=== PATIENT | female | born 1995 | race American Indian/Alaskan Native ===

== ENCOUNTER 2019-03-29 19:11 | Emergency (ER) | payer SELFPAY ==
[2019-03-29] MEDS ORDERED: TORADOL IM ONE (19:35)
--- NOTE | 2019-03-29 19:40 | Emergency Department Report ---
ED Back Pain/Injury HPI - General Chief Complaint: Back Pain/Injury Stated Complaint: BACK PAIN DUE TO FALL Time Seen by Provider: 03/29/19 19:34 Source: patient Limitations: No Limitations - History of Present Illness Initial Comments: pt is a 23 y/o female who presents for low back pain status post fall just 2 steps ; there was no LOC patient was ambulatory after falling on complains of low back pain radiating to her right lateral thigh . There is also decrease in bowel or bladder function patient is ambulatory to baseline per patient. MD Complaint: back pain Onset/Timin -: days(s) Similar Symptoms Previously: Yes Place: home Radiation: right leg Severity: moderate Severity scale (0 -10): 4 Quality: aching Consistency: constant Improves With: none Worsens With: movement, sitting upright, walking Context: fall Associated Symptoms: denies other symptoms. denies: weakness, numbness, difficulty urinating, incontinence, constipation - Related Data Previous Rx's Medication Instructions Recorded Last Taken Type Cyclobenzaprine [Flexeril] 10 mg PO TID PRN #30 tablet 03/29/19 Unknown Rx Menthol/Camphor [[place] 1 applicatio TP QID PRN #1 tube 03/29/19 Unknown Rx Ointment] Naproxen [Naprosyn] 500 mg PO BID PRN #30 tablet 03/29/19 Unknown Rx ED Review of Systems ROS: Stated complaint: BACK PAIN DUE TO FALL Other details as noted in HPI Constitutional: denies: chills, fever Eyes: denies: eye pain, eye discharge, vision change ENT: denies: ear pain, throat pain Respiratory: denies: cough, shortness of breath, wheezing Cardiovascular: denies: chest pain, palpitations Endocrine: no symptoms reported Gastrointestinal: denies: abdominal pain, nausea, diarrhea Genitourinary: denies: urgency, dysuria, discharge Musculoskeletal: back pain, myalgia. denies: joint swelling, arthralgia Skin: denies: rash, lesions Neurological: denies: headache, weakness, paresthesias Psychiatric: denies: anxiety, depression Hematological/Lymphatic: denies: easy bleeding, easy bruising ED Past Medical Hx - Past Medical History Previous Medical History?: No - Surgical History Past Surgical History?: Yes Additional Surgical History: C-Sec - Social History Smoking Status: Current Every Day Smoker Substance Use Type: None - Medications Home Medications: Home Medications Medication Instructions Recorded Confirmed Last Taken Type Cyclobenzaprine [Flexeril] 10 mg PO TID PRN #30 tablet 03/29/19 Unknown Rx Menthol/Camphor [[place] Ethel 1 applicatio TP QID PRN #1 tube 03/29/19 Unknown Rx Ointment] Naproxen [Naprosyn] 500 mg PO BID PRN #30 tablet 03/29/19 Unknown Rx ED Physical Exam - General Limitations: No Limitations General appearance: alert, in no apparent distress - Head Head exam: Present: atraumatic, normocephalic - Eye Eye exam: Present: normal appearance, PERRL, EOMI Pupils: Present: normal accommodation - ENT ENT exam: Present: normal orophraynx, mucous membranes moist, TM's normal bila terally, normal external ear exam - Neck Neck exam: Present: normal inspection, tenderness, full ROM. Absent: meningismus, lymphadenopathy, thyromegaly - Expanded Neck Exam Expanded Neck exam: Absent: tenderness (no posterior vertebral point tenderness ), midline deformity, anterior neck swelling, thyroid mass, carotid bruit, tracheal deviation - Respiratory Respiratory exam: Present: normal lung sounds bilaterally. Absent: respiratory distress, wheezes, stridor, chest wall tenderness - Cardiovascular Cardiovascular Exam: Present: regular rate, normal rhythm, normal heart sounds. Absent: systolic murmur, diastolic murmur, rubs, gallop - GI/Abdominal GI/Abdominal exam: Present: soft, normal bowel sounds. Absent: distended, tenderness, bruit, hernia - Rectal Rectal exam: Present: deferred - Extremities Exam Extremities exam: Present: normal inspection, full ROM, normal capillary refill. Absent: tenderness, pedal edema, joint swelling, calf tenderness - Back Exam Back exam: Present: normal inspection, full ROM, tenderness (no posterior vertebral point tenderness rom intact unrestricted no swelling no ecchymosis no crepitus ), muscle spasm, paraspinal tenderness. Absent: CVA tenderness (R), CVA tenderness (L), vertebral tenderness, rash noted - Expanded Back Exam Expanded Back exam: Absent: saddle anesthesia Back exam: Positive Straight Leg Raise: Right, Negative Straight Leg Raising: Left - Neurological Exam Neurological exam: Present: alert, oriented X3, CN II-XII intact, normal gait, reflexes normal. Absent: motor sensory deficit - Expanded Neurological Exam Expanded Patient oriented to: Present: person, place, time Speech: Present: fluid speech Cranial nerves: EOM's Intact: Normal, Gag Reflex: Normal, Tongue Deviation: Normal, Nystagmus: Normal, Facial Sensation: Normal Cerebellar function: Finger to Nose: Normal, Heel to Farrell: Normal, Romberg: Normal Upper motor neuron: [place] Neglect: Normal, Pronator Drift: Normal, Babinski Sign: Normal, Sensory Extinction: Normal Sensory exam: Lower Extremity Light Touch: Normal, Lower Extremity Pin Prick: Normal, Lower Extremity Temperature: Normal, LE 2 Point Discrimination: Normal Motor strength exam: RUE: 5, LUE: 5, RLE: 5, LLE: 5 DTR: bicep (R): 2+, bicep (L): 2+, ankle (R): 2+, ankle (L): 2+ Best Eye Response ([place]): (4) open spontaneously Best Motor Response ([place]): (6) obeys commands Best Verbal Response ([place]): (5) oriented [place] Total: 15 - Psychiatric Psychiatric exam: Present: normal affect, normal mood - Skin Skin exam: Present: warm, dry, intact, normal color. Absent: rash ED Course Vital Signs 03/29/19 19:14 Temperature 99.2 F Pulse Rate 80 Respiratory 14 Rate Blood Pressure 124/74 O2 Sat by Pulse 99 Oximetry ED Medical Decision Making - Radiology Data Radiology results: report reviewed, image reviewed - Medical Decision Making Pt declines lumbar xray, this is a lumbar strain, pain is improved with nsaids, pt is ambulatory to baseline there is no weakness no numbness no paralysis, no weakness, plan nsaids muscle relaxants, analgesic balm moist heat therapy follow up with pcp in 2-3 days Critical care attestation.: If time is entered above; I have spent that time in minutes in the direct care of this critically ill patient, excluding procedure time. ED Disposition Clinical Impression: Low back strain Qualifiers: Encounter type: initial encounter Qualified Code(s): S39.012A - Strain of muscle, fascia and tendon of lower back, initial encounter Disposition: TO HOME OR SELFCARE Is pt being admited?: No Does the pt Need Aspirin: No Condition: Stable Instructions: Low Back Strain (ED), Core Strengthening Exercises (GEN) Prescriptions: Cyclobenzaprine [Flexeril] 10 mg PO TID PRN #30 tablet PRN Reason: Muscle Spasm Naproxen [Naprosyn] 500 mg PO BID PRN #30 tablet PRN Reason: pain Menthol/Camphor [[place] Ethel Ointment] 1 applicatio TP QID PRN #1 tube PRN Reason: pain Referrals: [facility] [Outside] - 3-5 Days Forms: Work/School Release Form(ED) Time of Disposition: 19:50
[2019-03-29 20:16] VITALS: BP 104/74
== END 2019-03-29 20:16 | disposition home or self-care (01) ==
LOC: ED 19:11
DX: S39.012A Strain of muscle, fascia and tendon of lower back, initial encounter (principal); F17.200 Nicotine dependence, unspecified, uncomplicated; X58.XXXA Exposure to other specified factors, initial encounter; Y93.89 Activity, other specified; Y92.89 Other specified places as the place of occurrence of the external cause; Y99.8 Other external cause status
CPT/HCPCS: 96372; 99282; J1885